=== PATIENT | female | born 1955 | race Caucasian/White ===

== ENCOUNTER 2021-04-04 19:24 | Emergency (ER) | payer OTHER, SELFPAY ==
--- NOTE | ~2021-04-04 | XR_ITS ---
XR knee RT min 4V DATE: 04/04/2021 20:19 INDICATION: Posterior right knee pain. No recent injury. TECHNIQUE: 4 views including crosstable lateral COMPARISON: None FINDINGS: Diffuse osteopenia. Tricompartment osteoarthritis, with particular spurring at all 3 compartments, greatest at the patell ofemoral compartment. No fracture or dislocation, periosteal reaction or bone destruction. No joint effusion. No apparent radiographic intra-articular loose body. There is subtle chondrocalcinosis. IMPRESSION: Tricompartment osteoarthritis Subtle chondral calcinosis Osteopenia Reviewed, dictated and finalized at location A.
[2021-04-04 19:49] VITALS: BP 142/85; PULSE 71; RESP 18; TEMP 36.2; O2SAT 99
--- NOTE | 2021-04-04 20:08 | ED.LOWEXIN ---
HPI - Extremity Injury (Lower) General Chief Complaint: Extremity Injury, Lower Stated Complaint: knee pain Time Seen by Provider: 04/04/21 19:36 Source: patient Mode of arrival: ambulatory Limitations: no limitations History of Present Illness HPI Narrative: 65-year-old female presents to [facility] with complaints of pain to her posterior right knee for the past 2 to 3 days. Patient denies injury to her knee. Patient reports that the symptoms have been becoming worse over the past 24 hours and she is concerned about a blood clot. Patient has been taking Aleve, ibuprofen and has been sitting in a hot tub with little relief. Patient denies injury to her knee. Patient denies redness, swelling, fever, body aches, chills, shortness of breath or wheezing. Onset (ago): day(s) (2) Injury: Right: knee Relieving factors: nothing Exacerbating factors: weight bearing, movement and palpation Other symptoms: none Treatments prior to arrival: cold therapy, heart therapy and NSAIDS Related Data Home Medications Medication Instructions Recorded Confirmed dextroamphetamine-amphetamine 10 mg PO DAILY 04/04/21 04/04/21 [Adderall XR] omeprazole 20 mg PO DAILY 04/04/21 04/04/21 venlafaxine 150 mg PO DAILY 04/04/21 04/04/21 Allergies Allergy/AdvReac Type Severity Reaction Status Date / Time latex Allergy Intermediate Hives Verified 04/04/21 20:16 Review of Systems Constitutional: Constitutional: Denies chills, Denies fatigue, Denies fever(s) and Denies weakness ENT: Denies dysphagia, Denies dizziness, Denies epistaxis and Denies sore throat Cardiovascular: Cardiovascular: Denies chest pain Respiratory: Respiratory: Denies cough, Denies dyspnea and Denies wheezing Gastrointestinal: Gastrointestinal: Denies abdominal pain, Denies diarrhea, Denies nausea and Denies vomiting Musculoskeletal: Musculoskeletal: Denies joint swelling Comments: Pain to posterior right knee Integumentary/Breasts: Skin/Breast: Denies pruritus, Denies rash and Denies skin ulcer Neurologic: Denies dizziness PMF Past Medical History Medical History Rectovaginal fistula Family History Family History (Updated 04/04/21 @ 20:10 by Peace Hager APRN) Other Multiple sclerosis Social History Social History (Updated 04/04/21 @ 20:10 by Peace Hager APRN) Smoking status: Never smoker Gender identity (if verbalized by the patient): Female Comments At time of signature, I agree with nursing past medical, surgical, social and family history. There is no relevant family history pertinent to the presenting complaint. Exam Const: General: no acute distress Nutritional Appearance: well nourished and obese Orientation/consciousness: patient oriented x3 Resp: Effort & Inspection: normal respiratory effort, not labored and not tachypneic Auscultation: clear to auscultation bilaterally Cardio: Rate: regular rate, not bradycardic and not tachycardic Rhythm: regular rhythm Skin: General skin exam: normal color, no jaundice and no pallor Rashes: no rashes Wounds: no wounds Neuro: General: patient oriented x3, moves all extremities and no meningeal signs Speech: normal speech Extrem: General: normal to inspection and no pedal edema Other: Moderate amount of pain noted to posterior right knee upon palpation. There is no obvious swelling, bruising or erythema noted. No open wounds noted Psych: Appearance: grossly normal Mental Status: mental status grossly normal Affect: normal affect Attitude: cooperative Thought content: Yes Normal thought content present Course Vital Signs Vital signs: Vital Signs Temperature 36.2 C L 04/04/21 19:49 Pulse Rate 71 04/04/21 19:49 Respiratory Rate 18 04/04/21 19:49 Blood Pressure 142/85 H 04/04/21 19:49 Pulse Oximetry 99 04/04/21 19:49 Temperature 36.2 C L 04/04/21 19:49 Pulse Rate 71 04/04/21 19:49 Respiratory Rat
--- NOTE | 2021-04-04 20:35 | PC.NURSE ---
visual acuity exam noted on this chart by mistake... unable to remove exam
== END 2021-04-04 20:45 | disposition short-term general hospital (02) ==
PROVIDERS: Emergency Provider Nurse Practitioner Family
DX: M25.561 Pain in right knee (principal); K21.9 Gastro-esophageal reflux disease without esophagitis; G47.30 Sleep apnea, unspecified; F41.9 Anxiety disorder, unspecified; F32.9 Major depressive disorder, single episode, unspecified
CPT/HCPCS: 73564; 99213; G0463